=== PATIENT | male | born 1935 | race Caucasian/White ===

== ENCOUNTER → 2016-07-25 | Outpatient (CLI) | payer BC, OTHER ==
[~2016-07-25] MED LIST: ATOR-54 PO; CALCTAB5 PO; CHOL100010 PO; ECON0.05 TD; FLUD0.1T10 PO; FRS/40 PO; GABA-1218 PO; INSDGI SC; LACT12LO28 TOP; LOSA1TAB38 PO; METO50TA17 PO; MODA200T42 PO; NVLGI SC; POTA10TA33 PO; PRD/25 PO; PRED-301 PO; RMR15 PO; ROPI1TAB29 PO; WLLSR150 PO; XRL15 PO; [UNRECOGNIZED DRUG - CODE] TOP
[2016-07-25 17:45] LABS: HEMATOCRIT 38.8 % (42-52)
[2016-07-26 06:17] LABS: ESTIMATED AVERAGE GLUCOSE 186 mg/dl; HA1C FLAG Normal (Normal)
== END | disposition home or self-care (01) ==
LOC: C.LABBFT 15:46
PROVIDERS: ATTEND Nurse Practitioner Adult Health
DX: E11.649 Type 2 diabetes mellitus with hypoglycemia without coma (principal); E11.49 Type 2 diabetes mellitus with other diabetic neurological complication

== ENCOUNTER → 2016-10-14 | Outpatient (CLI) | payer BC | END | disposition home or self-care (01) | LOC: C.LABBFT 12:43 | PROVIDERS: ATTEND Psychiatry & Neurology Psychiatry | DX: F33.1 Major depressive disorder, recurrent, moderate (principal) ==

== ENCOUNTER → 2016-11-01 | Outpatient (CLI) | payer BC ==
[2016-11-02 06:55] LABS: ESTIMATED AVERAGE GLUCOSE 180 mg/dl; HA1C FLAG Normal (Normal)
== END | disposition home or self-care (01) ==
LOC: C.LAB1850 15:13
PROVIDERS: ATTEND Nurse Practitioner Adult Health
DX: E11.319 Type 2 diabetes mellitus with unspecified diabetic retinopathy without macular edema (principal)

== ENCOUNTER → 2017-02-11 | Outpatient (CLI) | payer BC ==
[~2017-02-11] MED LIST changes: -GABA-1218 PO; +GABA300C19 PO; +MODA1TAB6 PO; -MODA200T42 PO
[2017-02-11 17:04] LABS: ALT/SGPT 20 U/L (12-78); BLOOD UREA NITROGEN 23 mg/dl (7-18); BUN/CREATININE RATIO 17.3 (10-20); CALCIUM 9.8 mg/dl (8.5-10.1); CARBON DIOXIDE 26 mmol/L (21-32); CHLORIDE 107 mmol/L (98-107); CHOLESTEROL 134 mg/dl (0-200); GLUCOSE 186 mg/dl (70-99); POTASSIUM 3.7 mmol/L (3.5-5.1); SODIUM 141 mmol/L (136-145)
[2017-02-11 17:07] LABS: RATIO 25.2 mcg/mg (0-30.0)
[2017-02-11 17:15] LABS: ALB/GLOB RATIO 1.2 (0.9-2); ALKALINE PHOSPHATASE 94 U/L (45-117); AST/SGOT 26 U/L (15-37); CHOLESTEROL/HDL RATIO 1.7; HDL CHOLESTEROL 80 mg/dl; LDL CHOLESTEROL CALCULATED 39 mg/dl; TRIGLYCERIDES 73 mg/dl (0-150); VERY LOW DENSITY LIPOPROT CALC 15 mg/dl
== END | disposition home or self-care (01) ==
LOC: C.LAB1850 15:02
PROVIDERS: ATTEND Nurse Practitioner Adult Health
DX: I10 Essential (primary) hypertension (principal); E78.5 Hyperlipidemia, unspecified; E11.49 Type 2 diabetes mellitus with other diabetic neurological complication; E11.319 Type 2 diabetes mellitus with unspecified diabetic retinopathy without macular edema

== ENCOUNTER → 2017-03-27 | Outpatient (CLI) | payer BC ==
[~2017-03-27] MED LIST changes: +GABA-1218 PO; -GABA300C19 PO; -MODA1TAB6 PO; +MODA200T42 PO
[2017-03-27 18:23] LABS: BASO % 0.9 %; BASO ABS # 0.05 K/uL (0-0.2); COMPLETE YES; EOS % 3.3 %; HEMATOCRIT 39.5 % (42-52); IG% 0.3 %; LYMPH % 12.2 %; LYMPH ABS # 0.71 K/uL (1.2-3.4); MEAN CELL VOLUME 98.3 fL (80-100); MEAN CORPUSCULAR HEMOGLOBIN 32.8 pg (25-34); MEAN CORPUSCULAR HGB CONC 33.4 g/dl (32-36); MEAN PLATELET VOLUME 11.1 fL (7.4-10.4); MONO % 11.9 %; NEUT % 71.4 %; PLATELET COUNT 217 K/uL (130-400); RED BLOOD COUNT 4.02 M/uL (4.7-6.1); WHITE BLOOD COUNT 5.82 K/uL (4.8-10.8)
[2017-03-27 18:51] LABS: ALT/SGPT 24 U/L (12-78); AST/SGOT 32 U/L (15-37); BLOOD UREA NITROGEN 21 mg/dl (7-18); BUN/CREATININE RATIO 19.1 (10-20); CARBON DIOXIDE 31 mmol/L (21-32); CHLORIDE 102 mmol/L (98-107); CREATININE 1.09 mg/dl (0.60-1.40); GLUCOSE 143 mg/dl (70-99); POTASSIUM 3.7 mmol/L (3.5-5.1); SODIUM 141 mmol/L (136-145)
[2017-03-27 19:02] LABS: ALB/GLOB RATIO 1.2 (0.9-2); ALKALINE PHOSPHATASE 104 U/L (45-117)
== END | disposition home or self-care (01) ==
LOC: C.LABSPEC 17:34
PROVIDERS: ATTEND Internal Medicine
DX: R63.4 Abnormal weight loss (principal)

== ENCOUNTER → 2017-04-01 | Outpatient (CLI) | payer BC ==
--- NOTE | 2017-04-01 08:28 | DIAGNOSTIC IMAGING REPORT ---
(BARIUM SWALLOW) ESOPHAGUS CLINICAL HISTORY: DYSPHAGIA, weight loss COMPARISON STUDY: None FLUOROSCOPY TIME: 1.7 minutes. NUMBER OF FLUOROSCOPIC IMAGES: 22 FINDINGS: The patient swallowed effervescent granules and barium. There was penetration but no evidence of nikole aspiration. There is a mildly prominent cricopharyngeus impression. No esophageal masses or ulcerations are visualized. There were no strictures. There was reflux. A 1/2 inch barium tablet freely passed into the stomach. IMPRESSION: 1. Penetration but no evidence of aspiration 2. No esophageal masses or ulcerations identified 3. Reflux Electronically signed by: Andrew Singleton M.D. 04/01/2017 8:26 AM Dictated Date/Time: 04/01/2017 8:22 AM
--- NOTE | 2017-04-07 11:38 | CODING QUERY NO DIAGNOSIS ---
: 1935 TREATMENT RENDERED WITHOUT A DIAGNOSIS To promote full compliance with coding requirements relating to patient care, physician participation is requested in all cases of attraction attendant uncertainty. Please assist us with providing a diagnosis/symptom for the test(s) below: A diagnosis/symptom was not documented on your Order. A valid diagnosis/symptom is required to bill all insurances. Please remember that we are unable to code a diagnosis of rule out, probable, possible, questionable, or suspected. Tests that require a diagnosis: DOS: 04/01/17 *BARIUM SWALLOW DIAGNOSIS: Provider Signature: Date: Thank you Radha Taylor [facility] [employer] Once completed, please kindly fax back to [phone] For questions please call [phone]
== END | disposition home or self-care (01) ==
LOC: C.RAD 07:05
PROVIDERS: ATTEND Internal Medicine
DX: R13.14 Dysphagia, pharyngoesophageal phase (principal)

== ENCOUNTER → 2017-05-15 | Outpatient (CLI) | payer BC ==
[~2017-05-15] MED LIST changes: +ATOR-22 PO; +BUPR-79 PO; +CALC-393 PO; +CALCTAB7 PO; +CHOL1000 PO; +FLUR15CA12 PO; -INSDGI SC; +INSDGI SQ; +METO50TA16 PO; +NVLG SQ; +PRLSR20 PO; +RIVA1.5T PO
--- NOTE | 2017-05-19 12:37 | CODING QUERY MEDICAL NECESSITY ---
CQSUPPORTING DIAGNOSIS NEEDED A supporting diagnosis is required for the test/procedure performed on this patient in order for us to be reimbursed by the patient's insurance. Please provide a supporting diagnosis for the following test/procedure listed below next to the test name along with your signature. *If there is no additional diagnosis for this patient that would support the following test/procedure please document that below next to the test/procedure. Test(s)/Procedure(s) that require a supporting diagnosis: DOS 05/15/17 BONE MINERAL DENSITY STUDY Provider Signature: Date: Thank you Janiya Young Health Information Management Once completed, please kindly fax back to [phone] For questions please call [phone]
== END | disposition home or self-care (01) ==
LOC: C.MAMM 08:43
PROVIDERS: ATTEND Internal Medicine Endocrinology, Diabetes & Metabolism
DX: M85.80 Other specified disorders of bone density and structure, unspecified site (principal); E27.40 Unspecified adrenocortical insufficiency; Z79.52 Long term (current) use of systemic steroids

== ENCOUNTER → 2017-06-06 | Outpatient (CLI) | payer BC ==
[~2017-06-06] MED LIST changes: -ATOR-22 PO; -BUPR-79 PO; -CALC-393 PO; -CALCTAB7 PO; -CHOL1000 PO; -FLUR15CA12 PO; +INSDGI SC; -INSDGI SQ; -METO50TA16 PO; -NVLG SQ; -PRLSR20 PO; -RIVA1.5T PO
[2017-06-07 06:42] LABS: HEMOGLOBIN A1C 8.4 % (4.5-5.6)
== END | disposition home or self-care (01) ==
LOC: C.LABBFT 14:26
PROVIDERS: ATTEND Nurse Practitioner Adult Health
DX: E11.319 Type 2 diabetes mellitus with unspecified diabetic retinopathy without macular edema (principal)

== ENCOUNTER 2017-08-04 19:56 | Observation (INO) | payer BC ==
[~2017-08-04] VITALS: Ht 172.7 cm; Wt 66.7 kg
[~2017-08-04 19:56] MED LIST changes: -INSDGI SC; +INSDGI SQ
[2017-08-04] MEDS ORDERED: FENTANYL CITRATE INJ 50 MCG/1 ML 2 ML VIAL ONE (20:13)
[2017-08-04] MEDS ORDERED: ONDANSETRON INJ 2 MG/ML 2 ML VIAL ONE (20:13)
[2017-08-04] MEDS ORDERED: ASPIRIN 324 MG CHEW ONE (20:13)
--- NOTE | 2017-08-04 20:25 | EMERGENCY ROOM VISIT NOTE ---
History Report prepared by Dilshad: Howie Shepard Under the Supervision of: Dr. Lawrence Iraheta D.O. First contact with patient: 20:04 Stated Complaint: CARDIAC ASSESSMENT, History of Present Illness The patient is an 82 year old male who presents to the Emergency Room with complaints of a constant irregular heart rate beginning a few hours ago. The patient states he has a history of a-fib and says he is in it right now. He reports he was sitting at home when his symptoms began. The patient notes he experienced arm pain and intermittent shortness of breath. He states he is currently confused and is having a hard time recalling the history. The patient reports he has been nauseous and has had trouble eating and drinking as well. He denies chest pain, vomiting, and a headache. EMS states they were called for cardiac symptoms. They report the patient was given aspirin and fentanyl in route. EMS notes when they were administering the medication, he became confused. They state he was only oriented to the president. EMS reports the patient's blood sugar was 86. They note the patient' s reports his blood sugar was low this morning, so she gave him food. EMS states his blood sugar was elevated for a few measurements throughout the day. Source of History: patient Onset: a few hours ago Position: chest Quality: other (irregular heart rate) Timing: constant Associated Symptoms: + SOB (intermittent), + nausea, No headache, No chest pain, No vomiting Note: Associated symptoms: arm pain, confusion, trouble eating, trouble drinking Review of Systems See HPI for pertinent positives & negatives. A total of 10 systems reviewed and were otherwise negative. Past Medical & Surgical Medical Problems: (1) Atrial fibrillation (2) Chest pressure (3) Diabetes (4) Inguinal hernia (5) nausea, dehydration (6) S/P hernia repair Surgical Problems: (1) S/P ablation of atrial flutter (2) S/P cholecystectomy Family History Diabetes mellitus FH: cancer FH: heart disease FH: lung disease Kidney disease Kidney stones Social History Smoking Status: Former Smoker Alcohol Use: none Marital Status: Housing Status: lives with family Occupation Status: retired Current/Historical Medications Scheduled Atorvastatin (Lipitor), 20 MG PO QPM Bupropion (Wellbutrin Sr), 150 MG PO BID Calcium (Caltrate), 600 MG PO BID Cholecalciferol (Vitamin D), 2,000 INTER.UNIT PO DAILY@ NOON Fludrocortisone Acetate (Florinef), 0.1 MG PO QAM Furosemide (Lasix), 40 MG PO DAILY@ NOON Gabapentin (Neurontin), 300 MG PO TID Insulin Aspart (Novolog), 0 SC ACHS Insulin Glargine (Lantus), 16 UNITS SQ QAM Losartan Potassium (Cozaar), 100 MG PO DAILY Metoprolol Tartrate (Lopressor) (Lopressor), 50 MG PO BID Modafinil (Provigil), 200 MG PO DAILY Omeprazole (Prilosec), 20 MG PO QAM Potassium Chloride (Potassium Chloride Sr), 10 MEQ PO BID Prednisone (Prednisone), 5 MG PO QAM Prednisone (Prednisone), 2.5 MG PO W/LUNCH Rivaroxaban (Xarelto), 15 MG PO DAILY Ropinirole Hydrochloride (Requip), 1 MG PO TID Scheduled PRN Flurazepam Hcl (Flurazepam Hcl), 15 MG PO HS PRN for Insomnia Allergies Coded Allergies: Itraconazole (Verified Adverse Reaction, Intermediate, DEPRESSION, ) Lisinopril (Verified Adverse Reaction, Mild, COUGH, 04/25/16) Physical Exam Vital Signs Date Time Temp Pulse Resp B/P (MAP) Pulse Ox O2 Delivery O2 Flow Rate FiO2 08/04/17 22:32 77 14 130/90 99 Room Air 08/04/17 22:00 76 12 131/85 98 Room Air 08/04/17 21:30 64 10 136/86 98 Room Air 08/04/17 21:23 96 Room Air 08/04/17 21:22 96 Room Air 08/04/17 21:22 97 Room Air 08/04/17 21:20 65 12 126/80 97 Room Air 08/04/17 20:40 63 08/04/17 20:24 36.7 87 12 134/90 96 Room Air Physical Exam GENERAL: Patient is awake and answers questions slowly. Patient is resting comfortably and showing no signs of anxiety EYES: The conjunctivae are clear. The pupils are round and reactive. EARS, NOSE, MOUTH AND THROAT: The nose is without any evidence of any deformity. Mucous membranes are moist tongue is midline NECK: The neck is nontender and supple. RESPIRATORY: Rales at both bases. No tachypnea or conversational dyspnea. CARDIOVASCULAR: Regular rate and irregular rhythm noted there no definite murmurs noted. GASTROINTESTINAL: The abdomen is soft. Bowel sounds are present in all quadrants. Abdomen is nontender MUSCULOSKELETAL/EXTREMITIES: There is no evidence of gross deformity full range of motion is noted in the hips and shoulders SKIN: There is no obvious evidence of any rash. There are no petechiae, pallor or cyanosis noted. Trace pedal edema bilaterally. NEUROLOGIC: Patient is awake and oriented to person, place, and situation. Strength is diminished but equal in the lower extremities. Hose Inspector strength was diminished in the left compared to the right upper extremities. No facial droop appreciated. Medical Decision & Procedures ER Provider Diagnostic Interpretation: Radiology results as stated below per my review and radiologist interpretation: CT HEAD WITHOUT CONTRAST (CT) CLINICAL HISTORY: Altered mental status. Weakness. COMPARISON STUDY: February 16, 2015 TECHNIQUE: Axial CT of the brain is performed from the vertex to the skull base. IV contrast was not administered for this examination. A dose lowering technique was utilized adhering to the principles of ALARA. CT DOSE: 614.27 mGy.cm FINDINGS: No intra or extra-axial mass lesions are visualized. There is no CT evidence of acute cortical infarction. There is no evidence of midline shift. There is no acute hemorrhage. No calvarial fractures are visualized. There are mild white matter hypodensities likely on a small vessel basis. Subtle left frontal hypodensity is visualized #16/32 likely is artifactual. If symptoms are persistent, an MRI the brain could always be obtained in follow-up. There is no evidence of pathologic ventricular dilatation. There is no evidence of acute sinusitis IMPRESSION: No acute intracranial findings Electronically signed by: Andrew Singleton M.D. 08/04/2017 9:04 PM Dictated Date/Time: 08/04/2017 9:02 PM CHEST ONE VIEW PORTABLE CLINICAL HISTORY: Weakness, change in mental status COMPARISON STUDY: 05/01/2016 FINDINGS: The heart is borderline enlarged. There is aortic tortuosity. There is chronic left basilar atelectasis/scarring. There is no failure. There is no lobar consolidation.[ No significant pleural effusions are visualized. IMPRESSION: No change from the preceding study. No acute findings. Electronically signed by: Andrew Singleton M.D. 08/04/2017 9:22 PM Dictated Date/Time: 08/04/2017 9:21 PM Laboratory Results 08/04/17 20:31 Red Blood Count 4.25, Mean Corpuscular Volume 96.7, Mean Corpuscular Hemoglobin 32.7, Mean Corpuscular Hemoglobin Concent 33.8, Mean Platelet Volume 10.3, Neutrophils (%) (Auto) 66.0, Lymphocytes (%) (Auto) 17.7, Monocytes (%) (Auto) 11.1, Eosinophils (%) (Auto) 4.2, Basophils (%) (Auto) 0.7, Neutrophils # (Auto ) 4.89, Lymphocytes # (Auto) 1.31, Monocytes # (Auto) 0.82, Eosinophils # (Auto ) 0.31, Basophils # (Auto) 0.05 08/04/17 20:31 Test 08/04/17 20:18 08/04/17 20:31 Bedside Glucose 89 mg/dl (70-99) White Blood Count 7.40 K/uL (4.8-10.8) Red Blood Count 4.25 M/uL (4.7-6.1) Hemoglobin 13.9 g/dL (14.0-18.0) Hematocrit 41.1 % (42-52) Mean Corpuscular Volume 96.7 fL (80-100) Mean Corpuscular Hemoglobin 32.7 pg (25-34) Mean Corpuscular Hemoglobin Concent 33.8 g/dl (32-36) Platelet Count 232 K/uL (130-400) Mean Platelet Volume 10.3 fL (7.4-10.4) Neutrophils (%) (Auto) 66.0 % Lymphocytes (%) (Auto) 17.7 % Monocytes (%) (Auto) 11.1 % Eosinophils (%) (Auto) 4.2 % Basophils (%) (Auto) 0.7 % Neutrophils # (Auto) 4.89 K/uL (1.4-6.5) Lymphocytes # (Auto) 1.31 K/uL (1.2-3.4) Monocytes # (Auto) 0.82 K/uL (0.11-0.59) Eosinophils # (Auto) 0.31 K/uL (0-0.5) Basophils # (Auto) 0.05 K/uL (0-0.2) RDW Standard Deviation 49.9 fL (36.4-46.3) RDW Coefficient of Variation 14.1 % (11.5-14.5) Immature Granulocyte % (Auto) 0.3 % Immature Granulocyte # (Auto) 0.02 K/uL (0.00-0.02) Prothrombin Time 10.7 SECONDS (9.0-12.0) Prothromb Time International Ratio 1.0 (0.9-1.1) Activated Partial Thromboplast Time 25.0 SECONDS (21.0-31.0) Partial Thromboplastin Ratio 1.0 Anion Gap 5.0 mmol/L (3-11) Estimated GFR () 74.9 Estimated GFR (Non- 64.6 BUN/Creatinine Ratio 22.5 (10-20) Calcium Level 9.6 mg/dl (8.5-10.1) Magnesium Level 1.8 mg/dl (1.8-2.4) Total Bilirubin 0.6 mg/dl (0.2-1) Direct Bilirubin 0.2 mg/dl (0-0.2) Aspartate Amino Transf (AST/SGOT) 25 U/L (15-37) Alanine Aminotransferase (ALT/SGPT) 18 U/L (12-78) Alkaline Phosphatase 95 U/L (45-117) Total Creatine Kinase 86 U/L (39-308) Creatine Kinase MB 5.0 ng/ml (0.5-3.6) Creatine Kinase MB Ratio 5.8 (0-3.0) Troponin I 0.036 ng/ml (0-0.045) Pro-B-Type Natriuretic Peptide 2176 pg/ml (0-1800) Total Protein 6.0 gm/dl (6.4-8.2) Albumin 3.1 gm/dl (3.4-5.0) Thyroid Stimulating Hormone (TSH) 5.780 uIu/ml (0.300-4.500) Random Cortisol 11.06 mcg/dl Laboratory results per my review. ECG Per My Interpretation Indication: palpitations Rate (beats per minute): 78 Rhythm: atrial fibrillation Findings: no ectopy, other (No ST segment abnormality, no PVC) Comparison ECG Date: 04/25/16 Change: Decreased rate. Otherwise no significant change. ED Course 2010: The patient was evaluated in room C04. A complete history and physical examination were performed. 2148: Upon reevaluation, the patient is resting comfortably. I discussed results and treatment plan with him. He verbalizes agreement and understanding. The patient will be evaluated for further management and care. 2200: I spoke with Constantin, the resident, of the [facility] Hospitalist Service. The patient will be evaluated for further management and care. Medical Decision Differential diagnosis: Etiologies such as premature contractions, electrolyte abnormality, cardiac dysrhythmia, thyroid dysfunction, pulmonary embolism, infection, gastrointestinal, as well as others were entertained. Nursing notes reviewed. Additional history is obtained from the prehospital personnel. The patient is an 82-year-old male who presented to the emergency department for an evaluation of palpitations. The patient has a history of paroxysmal atrial fibrillation. He felt that he was having problems with palpitations and called the ambulance. He also has been complaining of some left upper extremity numbness and was unsure if this is related. The patient had diminished emergency department strength compared to the right hand but I am unsure if this is chronic. The patient was treated with pain medication prior to arrival. He was found to have rapid atrial fibrillation by the prehospital personnel but this appears to have improved prior to arrival. I discussed patient's laboratory and radiographic studies with him. He was treated with pain medication and aspirin prior to arrival. Given the patient's degree of symptoms I discussed his case with the on-call [facility] hospitalist group. They have agreed to evaluate the patient in the emergency department for further management and disposition. Medication Reconcilliation Current Medication List: was personally reviewed by me Blood Pressure Screening Patient's blood pressure: Normal blood pressure Blood pressure disposition: Did not require urgent referral Consults Time Called: 2147 Consulting Physician: Constantin, the , of the [facility] Hospitalist Service Returned Call: 2200 I spoke with Constantin, the resident, of the [facility] Hospitalist Service. The patient will be evaluated for further management and care. Impression Primary Impression: Chest pain Additional Impressions: Palpitations A-fib Weakness Scribe Attestation The scribe's documentation has been prepared under my direction and personally reviewed by me in its entirety. I confirm that the note above accurately reflects all work, treatment, procedures, and medical decision making performed by me. Departure Information Dispostion Being Evaluated By Hospitalist Referrals Luis Hansen M.D. (PCP) Problem Qualifiers Primary Impression: Chest pain Chest pain type: unspecified Qualified Codes: R07.9 - Chest pain, unspecified Additional Impressions: A-fib Atrial fibrillation type: paroxysmal Qualified Codes: I48.0 - Paroxysmal atrial fibrillation
[2017-08-04] MEDS ORDERED: PRLSR20 PO (20:57)
[2017-08-04] MEDS ORDERED: BUPR-79 PO (20:58)
[2017-08-04] MEDS ORDERED: METO50TA16 PO (21:03)
[2017-08-04 21:05] LABS: BASO % 0.7 %; BASO ABS # 0.05 K/uL (0-0.2); EOS % 4.2 %; EOS ABS # 0.31 K/uL (0-0.5); HEMATOCRIT 41.1 % (42-52); HEMOGLOBIN 13.9 g/dL (14.0-18.0); IG# 0.02 K/uL (0.00-0.02); LYMPH % 17.7 %; LYMPH ABS # 1.31 K/uL (1.2-3.4); MEAN CELL VOLUME 96.7 fL (80-100); MEAN CORPUSCULAR HEMOGLOBIN 32.7 pg (25-34); MEAN CORPUSCULAR HGB CONC 33.8 g/dl (32-36); MEAN PLATELET VOLUME 10.3 fL (7.4-10.4); MONO % 11.1 %; MONO ABS # 0.82 K/uL (0.11-0.59); NEUT ABS # 4.89 K/uL (1.4-6.5); PLATELET COUNT 232 K/uL (130-400); RED CELL DISTRIBUTION WIDTH CV 14.1 % (11.5-14.5); RED CELL DISTRIBUTION WIDTH SD 49.9 fL (36.4-46.3)
--- NOTE | 2017-08-04 21:06 | DIAGNOSTIC IMAGING REPORT ---
CT HEAD WITHOUT CONTRAST (CT) CLINICAL HISTORY: Altered mental status. Weakness. COMPARISON STUDY: February 16, 2015 TECHNIQUE: Axial CT of the brain is performed from the vertex to the skull base. IV contrast was not administered for this examination. A dose lowering technique was utilized adhering to the principles of ALARA. CT DOSE: 614.27 mGy.cm FINDINGS: No intra or extra-axial mass lesions are visualized. There is no CT evidence of acute cortical infarction. There is no evidence of midline shift. There is no acute hemorrhage. No calvarial fractures are visualized. There are mild white matter hypodensities likely on a small vessel basis. Subtle left frontal hypodensity is visualized #16/32 likely is artifactual. If symptoms are persistent, an MRI the brain could always be obtained in follow-up. There is no evidence of pathologic ventricular dilatation. There is no evidence of acute sinusitis IMPRESSION: No acute intracranial findings Electronically signed by: Andrew Singleton M.D. 08/04/2017 9:04 PM Dictated Date/Time: 08/04/2017 9:02 PM
[2017-08-04] MEDS ORDERED: RIVA1.5T PO (21:07)
[2017-08-04] MEDS ORDERED: CALC-393 PO (21:08)
[2017-08-04] MEDS ORDERED: CALCTAB7 PO (21:09)
[2017-08-04] MEDS ORDERED: ATOR-22 PO (21:15)
[2017-08-04 21:18] LABS: ALBUMIN 3.1 gm/dl (3.4-5.0); ALT/SGPT 18 U/L (12-78); BLOOD UREA NITROGEN 24 mg/dl (7-18); CALCIUM 9.6 mg/dl (8.5-10.1); CARBON DIOXIDE 30 mmol/L (21-32); CREATININE 1.06 mg/dl (0.60-1.40); GLUCOSE 98 mg/dl (70-99); POTASSIUM 3.2 mmol/L (3.5-5.1); SODIUM 141 mmol/L (136-145)
[2017-08-04] MEDS ORDERED: FLUR15CA12 PO (21:18)
[2017-08-04] MEDS ORDERED: INSDGI SQ (21:20)
--- NOTE | 2017-08-04 21:23 | DIAGNOSTIC IMAGING REPORT ---
CHEST ONE VIEW PORTABLE CLINICAL HISTORY: Weakness, change in mental status COMPARISON STUDY: 05/01/2016 FINDINGS: The heart is borderline enlarged. There is aortic tortuosity. There is chronic left basilar atelectasis/scarring. There is no failure. There is no lobar consolidation.[ No significant pleural effusions are visualized. IMPRESSION: No change from the preceding study. No acute findings. Electronically signed by: Andrew Singleton M.D. 08/04/2017 9:22 PM Dictated Date/Time: 08/04/2017 9:21 PM
[2017-08-04 21:30] LABS: ALKALINE PHOSPHATASE 95 U/L (45-117); AST/SGOT 25 U/L (15-37)
--- NOTE | 2017-08-04 22:16 | History and Physical ---
History & Physical Date & Time of Service: Aug 04, 2017 at 22:11 Chief Complaint: Cardiac Assessment, Primary Care Physician: Luis Hansen M.D. History of Present Illness Source: patient 82M with a PMHx of Afib, DM2, chronic adrenal insufficiency, TIA, HTN, h/o SVT s/p successful ablation, peripheral neuropathy, depression and indolent non Hodgkin's lymphoma diagnosed in 1999 p/w acute sudden chest pressure starting around noon this morning accompanied with left arm numbness/tingling and SOB. Pt states that his symptoms are constant and occur at rest. Patient reports that he believes his heart went into A. Fib and continually wishes that his heart would come out of A. Fib. Patient also reports feeling very thirsty - pt reports he hasn't had anything to drink for the entire day. Patient also reports that earlier in the day his blood sugar was in the 400s, he thinks this may have caused him to go into A. Fib. Pt is taking his medications as prescribed. He does not at present see a arch pad cementer. Pt got fentanyl 50mcg IV on route and Zofran. SHx: lives with in [place]. ROS: no diarrhea, no dysuria, no recent falls, chronic N&T on the upper extremities bilaterally. Past Medical/Surgical History Medical Problems: (1) ATRIAL FIB. RVR (2) Atrial fibrillation (3) Atrial fibrillation with RVR (4) Chest pain (5) Diabetes (6) Diabetes (7) Epigastric abdominal pain (8) Fecal impaction (9) Inguinal hernia (10) nausea, dehydration (11) post operative edema and ecchymosis (12) S/P hernia repair (13) Syncope (14) TIA (transient ischemic attack) (15) TIA, DM2 (16) Vomiting Surgical Problems: (1) S/P ablation of atrial flutter (2) S/P cholecystectomy Family History Diabetes mellitus FH: cancer FH: heart disease FH: lung disease Kidney disease Kidney stones Social History Smoking Status: Never Smoker Marital Status: Occupational Status: retired Allergies Coded Allergies: Itraconazole (Verified Adverse Reaction, Intermediate, DEPRESSION, ) Lisinopril (Verified Adverse Reaction, Mild, COUGH, 04/25/16) Home Medications Scheduled Atorvastatin (Lipitor), 20 MG PO QPM Bupropion (Wellbutrin Sr), 150 MG PO BID Calcium (Caltrate), 600 MG PO BID Cholecalciferol (Vitamin D), 2,000 INTER.UNIT PO DAILY@ NOON Fludrocortisone Acetate (Florinef), 0.1 MG PO QAM Furosemide (Lasix), 40 MG PO DAILY@ NOON Gabapentin (Neurontin), 300 MG PO TID Insulin Aspart (Novolog), 0 SC ACHS Insulin Glargine (Lantus), 16 UNITS SQ QAM Losartan Potassium (Cozaar), 100 MG PO DAILY Metoprolol Tartrate (Lopressor) (Lopressor), 50 MG PO BID Modafinil (Provigil), 200 MG PO DAILY Omeprazole (Prilosec), 20 MG PO QAM Potassium Chloride (Potassium Chloride Sr), 10 MEQ PO BID Prednisone (Prednisone), 5 MG PO QAM Prednisone (Prednisone), 2.5 MG PO W/LUNCH Rivaroxaban (Xarelto), 15 MG PO DAILY Ropinirole Hydrochloride (Requip), 1 MG PO TID Scheduled PRN Flurazepam Hcl (Flurazepam Hcl), 15 MG PO HS PRN for Insomnia Review of Systems Constitutional: + weakness, No fever, No chills, No weight loss Eyes: No worsening of vision ENT: No hearing loss Respiratory: + shortness of breath, + dyspnea at rest, No cough, No sputum, No wheezing Cardiovascular: No chest pain Abdomen: No pain, No nausea, No vomiting, No diarrhea, No constipation Musculoskeletal: No joint pain Genitourinary - Male: No hematuria, No dysuria Neurologic: No memory loss, No paralysis Physical Exam Vital Signs Date Time Temp Pulse Resp B/P (MAP) Pulse Ox O2 Delivery O2 Flow Rate FiO2 08/04/17 21:23 96 Room Air 08/04/17 21:22 96 Room Air 08/04/17 21:22 97 Room Air 08/04/17 21:20 65 12 126/80 97 Room Air 08/04/17 20:40 63 08/04/17 20:24 36.7 87 12 134/90 96 Room Air General Appearance: WD/WN, + thin Head: + pertinent finding (there is a circular scar the size of a nickel over the patients scalp - pt reports it doesn't heal well from his diabetes, denies the scar is from a fall) Eyes: normal inspection, PERRL, EOMI ENT: normal ENT inspection, hearing grossly normal Neck: supple, no adenopathy Respiratory/Chest: chest non-tender, lungs clear, normal breath sounds, no respiratory distress, no accessory muscle use Cardiovascular: no edema, no gallop, no murmur, normal peripheral pulses, + irregularly irregular Abdomen/GI: normal bowel sounds, non tender, soft, no organomegaly, no pulsatile mass Back: normal inspection, no CVA tenderness Extremities/Musculoskelatal: normal inspection, no calf tenderness, no pedal edema, normal range of motion Neurologic/Psych: research and development chemist II-XII nml as tested, no motor/sensory deficits, alert, oriented x 3, + pertinent finding (pt was slightly drowsy when examined, upon re -examination from my attending he was more alert, UE arm strenth appeared symmetrical, pt took a couple of tries to make a fist with his left hand - likely physiological and not pathological. ) Diagnostics Laboratory Results Results Past 24 Hours Test 08/04/17 20:18 08/04/17 20:31 Range/Units Bedside Glucose 89 70-99 mg/dl White Blood Count 7.40 4.8-10.8 K/uL Red Blood Count 4.25 4.7-6.1 M/uL Hemoglobin 13.9 14.0-18.0 g/dL Hematocrit 41.1 42-52 % Mean Corpuscular Volume 96.7 80-100 fL Mean Corpuscular Hemoglobin 32.7 25-34 pg Mean Corpuscular Hemoglobin Concent 33.8 32-36 g/dl Platelet Count 232 130-400 K/uL Mean Platelet Volume 10.3 7.4-10.4 fL Neutrophils (%) (Auto) 66.0 % Lymphocytes (%) (Auto) 17.7 % Monocytes (%) (Auto) 11.1 % Eosinophils (%) (Auto) 4.2 % Basophils (%) (Auto) 0.7 % Neutrophils # (Auto) 4.89 1.4-6.5 K/uL Lymphocytes # (Auto) 1.31 1.2-3.4 K/uL Monocytes # (Auto) 0.82 0.11-0.59 K/uL Eosinophils # (Auto) 0.31 0-0.5 K/uL Basophils # (Auto) 0.05 0-0.2 K/uL RDW Standard Deviation 49.9 36.4-46.3 fL RDW Coefficient of Variation 14.1 11.5-14.5 % Immature Granulocyte % (Auto) 0.3 % Immature Granulocyte # (Auto) 0.02 0.00-0.02 K/uL Prothrombin Time 10.7 9.0-12.0 SECONDS Prothromb Time International Ratio 1.0 0.9-1.1 Activated Partial Thromboplast Time 25.0 21.0-31.0 SECONDS Partial Thromboplastin Ratio 1.0 Sodium Level 141 136-145 mmol/L Potassium Level 3.2 3.5-5.1 mmol/L Chloride Level 105 98-107 mmol/L Carbon Dioxide Level 30 21-32 mmol/L Anion Gap 5.0 3-11 mmol/L Blood Urea Nitrogen 24 7-18 mg/dl Creatinine 1.06 0.60-1.40 mg/dl Estimated GFR () 74.9 Estimated GFR (Non- 64.6 BUN/Creatinine Ratio 22.5 10-20 Random Glucose 98 70-99 mg/dl Calcium Level 9.6 8.5-10.1 mg/dl Magnesium Level 1.8 1.8-2.4 mg/dl Total Bilirubin 0.6 0.2-1 mg/dl Direct Bilirubin 0.2 0-0.2 mg/dl Aspartate Amino Transf (AST/SGOT) 25 15-37 U/L Alanine Aminotransferase (ALT/SGPT) 18 12-78 U/L Alkaline Phosphatase 95 45-117 U/L Total Creatine Kinase 86 39-308 U/L Creatine Kinase MB 5.0 0.5-3.6 ng/ml Creatine Kinase MB Ratio 5.8 0-3.0 Troponin I 0.036 0-0.045 ng/ml Pro-B-Type Natriuretic Peptide 2176 0-1800 pg/ml Total Protein 6.0 6.4-8.2 gm/dl Albumin 3.1 3.4-5.0 gm/dl Thyroid Stimulating Hormone (TSH) 5.780 0.300-4.500 uIu/ml Random Cortisol 11.06 mcg/dl Diagnostic Radiology CHEST ONE VIEW PORTABLE CLINICAL HISTORY: Weakness, change in mental status COMPARISON STUDY: 05/01/2016 FINDINGS: The heart is borderline enlarged. There is aortic tortuosity. There is chronic left basilar atelectasis/scarring. There is no failure. There is no lobar consolidation.[ No significant pleural effusions are visualized. IMPRESSION: No change from the preceding study. No acute findings. [~ rep ct add3]] CT HEAD WITHOUT CONTRAST (CT) CLINICAL HISTORY: Altered mental status. Weakness. COMPARISON STUDY: February 16, 2015 TECHNIQUE: Axial CT of the brain is performed from the vertex to the skull base. IV contrast was not administered for this examination. A dose lowering technique was utilized adhering to the principles of ALARA. CT DOSE: 614.27 mGy.cm FINDINGS: No intra or extra-axial mass lesions are visualized. There is no CT evidence of acute cortical infarction. There is no evidence of midline shift. There is no acute hemorrhage. No calvarial fractures are visualized. There are mild white matter hypodensities likely on a small vessel basis. Subtle left frontal hypodensity is visualized #16/32 likely is artifactual. If symptoms are persistent, an MRI the brain could always be obtained in follow-up. There is no evidence of pathologic ventricular dilatation. There is no evidence of acute sinusitis IMPRESSION: No acute intracranial findings Impression Assessment and Plan 82M with a PMHx of Afib, DM2, chronic adrenal insufficiency, TIA, HTN, h/o SVT s/p successful ablation, peripheral neuropathy, depression and indolent non Hodgkin's lymphoma diagnosed in 1999 p/w acute sudden chest pressure starting around noon this morning accompanied with left arm numbness/tingling and SOB. Pt is also distressed that his heart went into Afib. EKG was not concerning for STEMI but pt had slight elevation of troponin. We will admit for chest pain rule out and get an echocardiogram. Of note is that the patient reports feeling dehydrated and has had some mood /depressive symptoms picked up in his last visit in May. (A patient of Dr. Yeyo Boyd who in May ordered a Psych consult). Elevated Troponins Pt was complaining of chest pressure and left arm tingling. No ST changes on EKG. Trop 0.036 in the ER, will check serially. Will admit to telemetry for observation. Afib Rate is around 78BPM irregularly irregular on the ER during the exam. Pt gets distressed every time his heart goes into A. Fib. Per chart review he has had an SVT with ablation. Unclear if present state is entirely from his HR. Will hydrate the patient was 125mls/hr (x 2 bags) Last echo was in 2014, showed EF of 2015 and some diastolic dysfunction. Will Repeat Echo. c/w Lopressor 50 MG PO BID c/w Xarelto 15 MG PO DAILY Pt is on Lasix 40mg daily, we will hold at present because patient appears dry. Watch for signs of fluid overload. Lethargy / Depression CT Head reviewed and normal. No obvious neurological deficits. Pt was lethargic on exam but that improved as Fentanyl wore off. Patient had a Psych consult in May - has poor social support at home. Will get a discharge planning eval for possible rehab placement. c/w Wellbutrin 150 MG PO BID. DM2 HBA1C was 8.4 in May. Pt reports getting glucose numbers in the 400s as recently as this AM. Pt is on Lantus and Novolog at home. Will repeat HBA1C. Glycemic control consult in place. Chronic Adrenal Insufficiency Pt reports taking his meds regularly. c/w Florinef 0.1 MG PO QAM c/w Provigil 200 MG PO DAILY c/w Prednisone 5 MG PO QAM + 2.5mg at lunch. HLD c/w Lipitor 20mg QAM Neuropathy c/w Neurontin 300mg TID HTN c/w Losartan 100mg daily. GERD c/w PPI daily. Restless Leg Syndrome c/w Requip 1 MG PO TID MSK Pt appears weak, will get PT and OT recs. Diet: DM2 and Heart Healthy DVT Proph: Xarelto as above. FULL CODE Resuscitation Status VTE Prophylaxis Will order VTE Prophylaxis: Yes Resident Involvement: Resident Care Provided Care Provided: Adult Hospital Medicine Reviewed: Pt Seen/Exam by Me History Patient seen and examined, chart reviewed, case discussed with Dr. Fabian and I agree with his assessment and plan as documented above. Briefly, patient is an 82yo C male with history of paroxysmal atrial fibrillation on group home anticoagulation with Xarelto, DM, HTN, TIA presenting with complaints of left sided chest pressure, shortness of breath and palpitations which began around noon today. Patient called EMS and was transported to [facility]. He was administered ASA, Fentanyl and Zofran en route. Patient presently complaining of left sided chest discomfort, shortness of breath, left hand numbness and overall feeling ill. Patient states that he feels that he is in atrial fibrillation and wishes to be cardioverted. Constitutional: denies: chills, fever Respiratory: positive: short of breath, negative: cough, orthopnea Cardiovascular: reports see HPI Gastrointestinal/Abdominal: negative: no symptoms reported Genitourinary: negative no symptoms reported Neurological/Psych: positive: see HPI Comments On exam patient is afebrile, HR 70s-80s irregularly irregular, BP 126/80, RR= 12, 96% on RA. He is AA&O to self, location and month, NAD. HEENT exam with dry mucus membranes, small skin tear on posterior occiput. CV-+S1/S2, irregularly irregular, no m/r/g. Lungs CTA, no rales/rhonchi/wheezes. Abdomen benign. Palpable pulses in 4 extremities, no edema or evidence of cardiac failure. Labs with CKMB=5, Trop=0.036, FNK=4499. H/H and BUN/Cr at or near baseline. CXR and CT head with no acute findings. EKG with no evidence of ischemia.
[2017-08-04] MEDS ORDERED: NITROGLYCERIN 0.4 MG SL PER TAB CHARGE SL PRN (23:00)
[2017-08-04] MEDS ORDERED: ONDANSETRON INJ 2 MG/ML 2 ML VIAL IV PRN (23:00)
[2017-08-04] MEDS ORDERED: FLURAZEPAM HCL 15 MG CAP PO PRN (23:00)
[2017-08-04] MEDS ORDERED: POLYETHYLENE (MIRALAX) 17 GM PACK PO PRN (23:00)
[2017-08-04] MEDS ORDERED: ALUMINUM/MAGNESIUM/SIMETH (MAALOX MAX) 30 ML UDC PO PRN (23:00)
[2017-08-04] MEDS ORDERED: MoRPHine SULFATE 2 MG/ML CARP IV PRN (23:00)
[2017-08-04] MEDS ORDERED: ZOLPIDEM TARTRATE 5 MG TAB PO PRN ×2 (23:00)
[2017-08-04] MEDS ORDERED: MAGNESIUM HYDROXIDE SUSP 30 ML UDC PO PRN (23:00)
[2017-08-04] MEDS ORDERED: ACETAMINOPHEN 325 MG TAB PO PRN (23:00)
[2017-08-04 23:45] VITALS: O2SAT 95
[2017-08-05 00:47] VITALS: BP 152/78; PULSE 85; TEMP 36.5; BMI 22.3
[2017-08-05] MEDS ORDERED: PHARMACY GLYCEMIC MGMT CONSULT PRN (01:22)
[2017-08-05] MEDS: NSS + 20MEQ KCL 1000ML 1,000 ML IV SCH ×2 (02:41→09:06)
[2017-08-05 04:00] VITALS: BP 152/82; PULSE 65; TEMP 36.6; O2SAT 97
[2017-08-05] MEDS ORDERED: IV FLUIDS COMPLETED PRN (05:00)
[2017-08-05] MEDS: INSULIN ASPART 100 UNITS/ML 3 ML PEN SC SCH ×3 (06:30→17:23)
[2017-08-05 07:39] VITALS: BP 118/64; PULSE 65; TEMP 36.7; O2SAT 97
[2017-08-05 08:08] LABS: BASO % 0.9 %; BASO ABS # 0.05 K/uL (0-0.2); EOS % 5.6 %; EOS ABS # 0.31 K/uL (0-0.5); HEMATOCRIT 37.7 % (42-52); HEMOGLOBIN 13.1 g/dL (14.0-18.0); IG# 0.01 K/uL (0.00-0.02); MEAN CELL VOLUME 96.4 fL (80-100); MEAN CORPUSCULAR HEMOGLOBIN 33.5 pg (25-34); MEAN CORPUSCULAR HGB CONC 34.7 g/dl (32-36); MEAN PLATELET VOLUME 9.9 fL (7.4-10.4); MONO % 14.2 %; MONO ABS # 0.78 K/uL (0.11-0.59); NEUT % 59.1 %; NEUT ABS # 3.24 K/uL (1.4-6.5); PLATELET COUNT 194 K/uL (130-400); RED CELL DISTRIBUTION WIDTH CV 14.3 % (11.5-14.5); RED CELL DISTRIBUTION WIDTH SD 50.5 fL (36.4-46.3); WHITE BLOOD COUNT 5.49 K/uL (4.8-10.8)
[2017-08-05] MEDS: ROPINIROLE HCL 1 MG TAB PO SCH ×2 (08:10→14:18)
[2017-08-05] MEDS: GABAPENTIN 300 MG CAP PO SCH ×2 (08:12→14:18)
[2017-08-05 08:27] LABS: CALCIUM 9.4 mg/dl (8.5-10.1); CREATININE 1.13 mg/dl (0.60-1.40); POTASSIUM 3.5 mmol/L (3.5-5.1)
--- NOTE | 2017-08-05 08:53 | Family Medicine Progress Note ---
Progress Note Date of Service Aug 05, 2017. Subjective Pt evaluation today including: conversation w/ patient Found patient immediately following his echo this morning, sitting up. Says that he has some 'discomfort' in his chest at baseline and when breathing, though does not particularly note any pleuritic pain on deep inspiration. Says that his symptoms have improved since onset around noon yesterday but not resolved. Says that it seems to come and go a bit since that time, not particularly associated with any activity. Denies any N/V, abdominal pain, present arm discomfort or numbness/tingling, or any other acute concerns. Constitutional: No fever, No chills Respiratory: + shortness of breath (perhaps), No cough Cardiovascular: + chest pain, No edema Abdomen: No pain, No nausea, No vomiting Medications Current Inpatient Medications Medications (Trade) Dose Ordered Sig/Jarad Route Start Time Stop Time Status Last Admin Dose Admin Potassium Chloride/Sodium Chloride 1,000 ml @ 125 mls/hr Q8H IV 08/05/17 01:30 08/05/17 17:29 08/05/17 02:41 125 MLS/HR Acetaminophen (Tylenol Tab) 650 mg Q4H PRN PO 08/04/17 23:00 09/03/17 22:59 Al Hydrox/Mg Hydrox/Simethicone (Maalox Max Susp) 15 ml Q4H PRN PO 08/04/17 23:00 09/03/17 22:59 Magnesium Hydroxide (Milk Of Magnesia Susp) 30 ml Q12H PRN PO 08/04/17 23:00 09/03/17 22:59 Ondansetron HCl (Zofran Inj) 4 mg Q6H PRN IV 08/04/17 23:00 09/03/17 22:59 Nitroglycerin (Nitrostat Tab) 0.4 mg UD PRN SL 08/04/17 23:00 09/03/17 22:59 Morphine Sulfate (MoRPHine SULFATE INJ) 2 mg Q30M PRN IV 08/04/17 23:00 08/18/17 22:59 Polyethylene (Miralax Powder Packet) 17 gm DAILY PRN PO 08/04/17 23:00 09/03/17 22:59 Atorvastatin Calcium (Lipitor Tab) 20 mg QPM PO 08/05/17 21:00 09/04/17 20:59 Bupropion HCl (Wellbutrin-Sr Tab) 150 mg BID PO 08/05/17 09:00 09/04/17 08:59 08/05/17 08:11 150 MG Fludrocortisone Acetate (Florinef Tab) 0.1 mg QAM PO 08/05/17 09:00 09/04/17 08:59 08/05/17 08:12 0.1 MG Flurazepam HCl (Dalmane Cap) 15 mg HS PRN PO 08/04/17 23:00 09/03/17 22:59 Gabapentin (Neurontin Cap) 300 mg TID PO 08/05/17 09:00 09/04/17 08:59 08/05/17 08:12 300 MG Losartan Potassium (coZAAR TAB) 100 mg DAILY PO 08/05/17 09:00 09/04/17 08:59 08/05/17 08:11 100 MG Metoprolol Tartrate (Lopressor Tab) 50 mg BID PO 08/05/17 09:00 09/04/17 08:59 08/05/17 08:12 50 MG Modafinil (proVIGIL TAB) 200 mg DAILY PO 08/05/17 09:00 09/04/17 08:59 Potassium Chloride (Klor-Con M10) 20 meq BID PO 08/05/17 09:00 09/04/17 08:59 08/05/17 08:10 20 MEQ Prednisone (PredniSONE TAB) 5 mg QAM PO 08/05/17 09:00 09/04/17 08:59 08/05/17 08:11 5 MG Rivaroxaban (Xarelto Tab) 15 mg QDD PO 08/05/17 17:00 09/04/17 16:59 Ropinirole HCl (Requip Tab) 1 mg TID PO 08/05/17 09:00 09/04/17 08:59 08/05/17 08:10 1 MG Pantoprazole Sodium (Protonix Tab) 40 mg QAM PO 08/05/17 09:00 09/04/17 08:59 08/05/17 08:13 40 MG Miscellaneous Information (Consult Glycemic Management Pharmacy) 1 ea UD PRN N/A 08/05/17 01:22 09/04/17 01:21 Prednisone (PredniSONE TAB) 2.5 mg DAILY@1200 PO 08/05/17 12:00 09/04/17 11:59 Insulin Aspart (novoLOG ASPART) SLIDING SCALE ACHS SC 08/05/17 06:30 09/04/17 06:29 Miscellaneous (Iv Fluids Completed) 1 ea PRN PRN N/A 08/05/17 05:00 08/05/18 04:59 Insulin Glargine (Lantus Solostar Pen) 15 units QAM SC 08/05/17 09:00 09/04/17 08:59 Objective Vital Signs Date Time Temp Pulse Resp B/P (MAP) Pulse Ox O2 Delivery O2 Flow Rate FiO2 08/05/17 07:39 36.7 65 18 118/64 (82) 97 Room Air 08/05/17 04:00 Room Air 08/05/17 04:00 36.6 65 20 152/82 (105) 97 Room Air 08/05/17 00:47 36.5 85 18 152/78 Room Air 08/04/17 23:45 74 18 123/72 95 08/04/17 22:32 77 14 130/90 99 Room Air 08/04/17 22:00 76 12 131/85 98 Room Air 08/04/17 21:30 64 10 136/86 98 Room Air 08/04/17 21:23 96 Room Air 08/04/17 21:22 96 Room Air 08/04/17 21:22 97 Room Air 08/04/17 21:20 65 12 126/80 97 Room Air 08/04/17 20:40 63 08/04/17 20:24 36.7 87 12 134/90 96 Room Air Physical Exam Notes: General Appearance: Awake, alert & oriented, speaking easily and comfortably in general, NAD. CV: +S1S2 RRR, no murmur. No peripheral edema. Pulm: Clear to auscultation throughout. Abdomen: +BS, soft, non-tender, non-distended. Extremities: No pedal edema or calf tenderness. Moving all extremities naturally and easily. Neuro: No gross neuro deficits. Lines: PIV. Laboratory Results 08/05/17 07:57 Red Blood Count 3.91, Mean Corpuscular Volume 96.4, Mean Corpuscular Hemoglobin 33.5, Mean Corpuscular Hemoglobin Concent 34.7, Mean Platelet Volume 9.9, Neutrophils (%) (Auto) 59.1, Lymphocytes (%) (Auto) 20.0, Monocytes (%) (Auto) 14.2, Eosinophils (%) (Auto) 5.6, Basophils (%) (Auto) 0.9, Neutrophils # (Auto ) 3.24, Lymphocytes # (Auto) 1.10, Monocytes # (Auto) 0.78, Eosinophils # (Auto ) 0.31, Basophils # (Auto) 0.05 08/05/17 07:57 Test 08/04/17 20:31 08/05/17 00:30 08/05/17 02:08 08/05/17 07:57 Prothrombin Time 10.7 SECONDS (9.0-12.0) Prothromb Time International Ratio 1.0 (0.9-1.1) Activated Partial Thromboplast Time 25.0 SECONDS (21.0-31.0) Partial Thromboplastin Ratio 1.0 Magnesium Level 1.8 mg/dl (1.8-2.4) Total Bilirubin 0.6 mg/dl (0.2-1) Direct Bilirubin 0.2 mg/dl (0-0.2) Aspartate Amino Transf (AST/SGOT) 25 U/L (15-37) Alanine Aminotransferase (ALT/SGPT) 18 U/L (12-78) Alkaline Phosphatase 95 U/L (45-117) Total Creatine Kinase 86 U/L (39-308) Creatine Kinase MB 5.0 ng/ml (0.5-3.6) Creatine Kinase MB Ratio 5.8 (0-3.0) Pro-B-Type Natriuretic Peptide 2176 pg/ml (0-1800) Total Protein 6.0 gm/dl (6.4-8.2) Albumin 3.1 gm/dl (3.4-5.0) Thyroid Stimulating Hormone (TSH) 5.780 uIu/ml (0.300-4.500) Random Cortisol 11.06 mcg/dl Urine Color DK YELLOW Urine Appearance CLOUDY (CLEAR) Urine pH 6.0 (4.5-7.5) Urine Specific [place] 1.022 (1.000-1.030) Urine Protein TRACE (NEG) Urine Glucose (UA) NEG (NEG) Urine Ketones TRACE (NEG) Urine Occult Blood NEG (NEG) Urine Nitrite NEG (NEG) Urine Bilirubin NEG (NEG) Urine Urobilinogen NEG (NEG) Urine Leukocyte Esterase TRACE (NEG) Urine WBC (Auto) 5-10 /hpf (0-5) Urine RBC (Auto) 0-4 /hpf (0-4) Urine Hyaline Casts (Auto) 5-10 /lpf (0-5) Urine Epithelial Cells (Auto) 20-30 /lpf (0-5) Urine Bacteria (Auto) NEG (NEG) Estimated Average Glucose 183 mg/dl Hemoglobin A1c 8.0 % (4.5-5.6) Free Thyroxine 1.40 ng/dl (0.80-1.60) White Blood Count 5.49 K/uL (4.8-10.8) Red Blood Count 3.91 M/uL (4.7-6.1) Hemoglobin 13.1 g/dL (14.0-18.0) Hematocrit 37.7 % (42-52) Mean Corpuscular Volume 96.4 fL (80-100) Mean Corpuscular Hemoglobin 33.5 pg (25-34) Mean Corpuscular Hemoglobin Concent 34.7 g/dl (32-36) Platelet Count 194 K/uL (130-400) Mean Platelet Volume 9.9 fL (7.4-10.4) Neutrophils (%) (Auto) 59.1 % Lymphocytes (%) (Auto) 20.0 % Monocytes (%) (Auto) 14.2 % Eosinophils (%) (Auto) 5.6 % Basophils (%) (Auto) 0.9 % Neutrophils # (Auto) 3.24 K/uL (1.4-6.5) Lymphocytes # (Auto) 1.10 K/uL (1.2-3.4) Monocytes # (Auto) 0.78 K/uL (0.11-0.59) Eosinophils # (Auto) 0.31 K/uL (0-0.5) Basophils # (Auto) 0.05 K/uL (0-0.2) RDW Standard Deviation 50.5 fL (36.4-46.3) RDW Coefficient of Variation 14.3 % (11.5-14.5) Immature Granulocyte % (Auto) 0.2 % Immature Granulocyte # (Auto) 0.01 K/uL (0.00-0.02) Anion Gap 6.0 mmol/L (3-11) Est Creatinine Clear Calc Drug Dose 46.7 ml/min Estimated GFR () 69.3 Estimated GFR (Non- 59.8 BUN/Creatinine Ratio 20.8 (10-20) Calcium Level 9.4 mg/dl (8.5-10.1) Troponin I 0.034 ng/ml (0-0.045) Test 08/05/17 08:10 Bedside Glucose 124 mg/dl (70-99) Assessment and Plan 82 yo male admitted for observation on [id number] for chest pressure, SOB, and palpitations. PMH: Afib, DM2, chronic adrenal insufficiency, TIA, HTN, h/o SVT s/p successful ablation, peripheral neuropathy, depression and indolent non Hodgkin' s lymphoma diagnosed in 1999 Chest pressure and SOB: Began around noon yesterday, waxing/waning, not particularly exertional. This am symptomatically improved but not resolved. No acute findings on pCXR. Good room SpO2 with no oxygen requirement. TnI x 3 have been negative. Initial EKG was afib without ST-T wave changes. No similar changes on telemetry monitoring overnight. This morning's echo (TTE) noted EF 55-60% that was overall reassuring. His chest symptoms do not appear to be related to an acute cardiopulmonary issue. There is some question of underlying psych issues, so perhaps some anxiety is playing a role. - Recommended close follow-up with his PCM and mental health (as referred by them). Paroxysmal Afib: History of same, including ablation for SVT. On arrival was in Afib rate 78. Overnight spontaneously converted to NSR with some PAC's. Kept on home lopressor 50 BID and xarelto 15 daily. Echo results as noted above. Dehydration: BUN/Cr ratio a bit elevated. Started on 0.9% NS + 20 KCl at 125 ml /hr. - Held home lasix 40. Will watch for s/s of fluid overload. Likely restart at time of hospital discharge. Lethargy: Per admit account, perhaps due to some fentanyl given early in treatment. CT head noted no acute findings. Did not appear lethargic on this morning's exam. Monitoring. Depression: Reportedly patient had psych consult ordered back in May by Dr. Yeyo Boyd. - On home wellbutrin 150 BID. - Discharge planning consult pending. May need help with social support vs rehab placement. DM2: Hx of same. HbA1c here 8.0. On lantus and novolog at home. Glycemic consult as inpatient. Monitoring. Chronic adrenal insufficiency: On home florinef 0.1 mg q AM, prednisone 5 mg q AM and 2.5 mg q lunch, and provigil 200 daily. Hyperlipidemia: Hx of same. On home lipitor 20. Neuropathy: Hx of same. On home neurontin 300 mg TID HTN: Hx of same. On home losartan 100 mg daily. GERD: Hx of same. On protonix 40 daily. Restless Leg Syndrome: Hx of same. On home requip 1 mg TID. Code status: Full code. Diet: DM2 and AHA heart healthy. DVT prophy: Xarelto as above. PT/OT: Pending. Disbo: Admit for observation to telemetry. Patient normally lives at home with . Resident Tracking Resident Involvement: Resident Care Provided Care Provided: Adult Hospital Medicine (inpatient)
[2017-08-05] MEDS ORDERED: MODAFINIL 100 MG TAB PO SCH (09:00)
[2017-08-05] MEDS ORDERED: BuPROPion SR 150 MG TABCR PO SCH (09:00)
[2017-08-05] MEDS ORDERED: POTASSIUM CHLORIDE 10 MEQ TABCR PO SCH (09:00)
[2017-08-05] MEDS ORDERED: INSULIN GLARGINE SOLOSTAR 100 UNITS/ML 3 ML PEN SC SCH (09:00)
[2017-08-05] MEDS ORDERED: METOPROLOL TARTRATE 50 MG TAB PO SCH (09:00)
[2017-08-05] MEDS ORDERED: LOSARTAN POTASSIUM 50 MG TAB PO SCH (09:00)
[2017-08-05] MEDS ORDERED: FUROSEMIDE 40 MG TAB PO SCH (09:00)
[2017-08-05] MEDS ORDERED: FLUDROCORTISONE ACETATE 0.1 MG TAB PO SCH (09:00)
[2017-08-05] MEDS ORDERED: PANTOprazole SOD 40 MG TAB PO SCH (09:00)
--- NOTE | 2017-08-05 10:45 | ECHOCARDIOGRAM REPORT ---
*NOTICE TO RECEIVING [employer] This information is strictly Confidential and protected under [place] law. [place] law prohibits you from making any further disclosure of this information unless further disclosure is expressly permitted by the written consent of the person to whom it pertains or is authorized by law. A general authorization for the release of medical or other information is not sufficient for this purpose. Hospital accepts no responsibility if the information is made available to any other person, INCLUDING THE PATIENT. Interpretation Summary * Conclusions -- * Normal LV chamber size with mild concentric LVH. * Normal LV systolic function, EF 55-60%. * No segmental left ventricular wall motion abnormalities are noted. * The mitral valve leaflets appear thickened, but open well. There is mild mitral regurgitation. There is no mitral valve stenosis. There is borderline mitral valve prolapse. Prolapse of the anterior mitral leaflet. * Mild left atrial enlargement. Procedure Details * A complete two-dimensional transthoracic echocardiogram was performed (2D, M-mode, Doppler and color flow Doppler). Left Ventricle * The left ventricle is normal in size. * There is mild concentric left ventricular hypertrophy. * Left ventricular systolic function is normal. * No segmental left ventricular wall motion abnormalities are noted. * Ejection Fraction = 55-60%. * The left ventricular wall motion is normal. Right Ventricle * The right ventricular cavity size is normal (basal dimension <4.2 cm in right ventricular apical 4-chamber view). * The right ventricular systolic function is normal as assessed by tricuspid annular plane systolic excursion (TAPSE) (normal >1.5 cm). Atria * The left atrium is mildly dilated. * Right atrial size is normal. * No ASD detected; PFO is not assessed. Mitral Valve * The mitral valve leaflets appear thickened, but open well. * There is borderline mitral valve prolapse. * Prolapse of the anterior mitral leaflet. * There is no mitral valve stenosis. * There is mild mitral regurgitation. Tricuspid Valve * The tricuspid valve is normal in structure and function. Aortic Valve * The aortic valve is normal in structure and function. Pulmonic Valve * The pulmonary valve is not well seen, but the Doppler examination is normal without significant regurgitation or stenosis. Great Vessels * The aortic root is normal size. Pericardium/Pleural * There is no pericardial effusion. MMode 2D Measurements and Calculations IVSd 1.3 cm IVSs 1.6 cm LVIDd 3.6 cm LVIDs 2.3 cm LVPWd 1.3 cm LVPWs 1.5 cm IVS/LVPW 1.0 FS 34.8 % EDV(Teich) 53.6 ml ESV(Teich) 18.7 ml EF(Teich) 65.0 % EDV(cubed) 45.8 ml ESV(cubed) 12.7 ml EF(cubed) 72.3 % % IVS thick 20.5 % % LVPW thick 17.7 % LV mass(C)d 163.6 grams LV mass(C)dI 94.3 grams/m\S\2 LV mass(C)s 127.7 grams LV mass(C)sI 73.6 grams/m\S\2 SV(Teich) 34.9 ml SI(Teich) 20.1 ml/m\S\2 SV(cubed) 33.1 ml SI(cubed) 19.1 ml/m\S\2 Ao root diam 3.7 cm Ao root area 10.6 cm\S\2 ACS 1.9 cm LA dimension 3.5 cm LA/Ao 0.94 LVOT diam 2.0 cm LVOT area 3.0 cm\S\2 LVAd ap4 32.5 cm\S\2 LVLd ap4 8.3 cm EDV(MOD-sp4) 102.2 ml EDV(sp4-el) 107.7 ml LVAs ap4 23.8 cm\S\2 LVLs ap4 7.8 cm ESV(MOD-sp4) 58.2 ml ESV(sp4-el) 61.7 ml EF(MOD-sp4) 43.0 % EF(sp4-el) 42.8 % LVAd ap2 26.7 cm\S\2 LVLd ap2 7.5 cm EDV(MOD-sp2) 78.9 ml EDV(sp2-el) 80.4 ml LVAs ap2 17.1 cm\S\2 LVLs ap2 6.5 cm ESV(MOD-sp2) 38.4 ml ESV(sp2-el) 38.0 ml EF(MOD-sp2) 51.3 % EF(sp2-el) 52.7 % LVLd %diff -10.63 % EDV(MOD-bp) 94.6 ml LVLs %diff -18.99 % ESV(MOD-bp) 50.9 ml EF(MOD-bp) 46.2 % SV(MOD-sp4) 43.9 ml SI(MOD-sp4) 25.3 ml/m\S\2 SV(MOD-sp2) 40.5 ml SI(MOD-sp2) 23.4 ml/m\S\2 SV(MOD-bp) 43.7 ml SI(MOD-bp) 25.2 ml/m\S\2 SV(sp4-el) 46.1 ml SI(sp4-el) 26.6 ml/m\S\2 SV(sp2-el) 42.4 ml SI(sp2-el) 24.4 ml/m\S\2 Doppler Measurements and Calculations MV E max raf 91.7 cm/sec MV A max raf 90.6 cm/sec MV E/A 1.0 MV P1/2t max raf 96.3 cm/sec MV P1/2t 108.2 msec MVA(P1/2t) 2.0 cm\S\2 MV dec slope 260.7 cm/sec\S\2 MV dec time 0.30 sec Ao V2 max 110.7 cm/sec Ao max PG 4.9 mmHg Ao max PG (full) 1.5 mmHg MENDOZA(V,A) 2.5 cm\S\2 MENDOZA(V,D) 2.5 cm\S\2 LV V1 max PG 3.4 mmHg LV V1 max 91.7 cm/sec PA V2 max 89.7 cm/sec PA max PG 3.2 mmHg PI max raf 151.8 cm/sec PI max PG 9.2 mmHg PI dec slope 69.1 cm/sec\S\2 PI P1/2t 643.3 msec TR max raf 290.9 cm/sec
[2017-08-05 11:32] VITALS: BP 126/62; PULSE 64; TEMP 36.7; O2SAT 93
[2017-08-05 12:46] VITALS: BMI 22.4
--- NOTE | 2017-08-05 14:20 | Pharmacy Progress Note ---
Glycemic Control Intl Consult Date of Service Aug 05, 2017. Scope Glycemic Pharmacist consulted by Dr Ambrocio on 08/04/17 for glycemic control and to write orders per [facility] inpatient glycemic control protocol Objective Weight (Kilograms): 66.700 Accuchecks BSG (last 24hrs): Test 08/04/17 20:18 08/04/17 20:31 08/05/17 00:56 08/05/17 07:57 Bedside Glucose 89 mg/dl (70-99) 106 mg/dl (70-99) Random Glucose 98 mg/dl (70-99) 138 mg/dl (70-99) Test 08/05/17 08:10 08/05/17 11:47 Bedside Glucose 124 mg/dl (70-99) 149 mg/dl (70-99) Laboratory Data (last 24hrs) Test 08/04/17 20:31 08/05/17 02:08 08/05/17 07:57 Anion Gap 5.0 mmol/L 6.0 mmol/L BUN/Creatinine Ratio 22.5 20.8 Blood Urea Nitrogen 24 mg/dl 24 mg/dl Creatinine 1.06 mg/dl 1.13 mg/dl Potassium Level 3.2 mmol/L 3.5 mmol/L Sodium Level 141 mmol/L 140 mmol/L White Blood Count 7.40 K/uL 5.49 K/uL Red Blood Count 4.25 M/uL 3.91 M/uL Hemoglobin 13.9 g/dL 13.1 g/dL Hematocrit 41.1 % 37.7 % Mean Corpuscular Volume 96.7 fL 96.4 fL Mean Corpuscular Hemoglobin 32.7 pg 33.5 pg Mean Corpuscular Hemoglobin Concent 33.8 g/dl 34.7 g/dl Platelet Count 232 K/uL 194 K/uL Mean Platelet Volume 10.3 fL 9.9 fL Neutrophils (%) (Auto) 66.0 % 59.1 % Lymphocytes (%) (Auto) 17.7 % 20.0 % Monocytes (%) (Auto) 11.1 % 14.2 % Eosinophils (%) (Auto) 4.2 % 5.6 % Basophils (%) (Auto) 0.7 % 0.9 % Neutrophils # (Auto) 4.89 K/uL 3.24 K/uL Lymphocytes # (Auto) 1.31 K/uL 1.10 K/uL Monocytes # (Auto) 0.82 K/uL 0.78 K/uL Eosinophils # (Auto) 0.31 K/uL 0.31 K/uL Basophils # (Auto) 0.05 K/uL 0.05 K/uL Hemoglobin A1c 8.0 % HbA1c Test 08/05/17 02:08 Hemoglobin A1c 8.0 % (4.5-5.6) H Recent Pertinent Medications Outpatient Anti-diabetic Regimen: * Lantus 16 units in the morning, Novolog 6 units with breakfast, 7 units with lunch, and 10 units with dinner (39 units/day) The patient is currently receiving: * Basal insulin: Lantus -- units every -- hours * Correctional Insulin: Novolog Correction per scale ACHS Goal Range: Low 120 mg/dL - High 160 mg/dL Correction Factor: 35 mg/dL/unit * Prandial insulin: Per carb ratio of 1 unit per 12 grams CHO consumed Risk Factors for Insulin Resistance: * Steroids: home dose of prednisone 5 mg with breakfast, 2.5 mg with lunch * Diet: type 2 diabetes diet Assessment & Plan ASSESSMENT: * Mr Farmer is an 82 y/o M with a PMH of Afib, TIA, HTN, non-Hodgkin's lymphoma who presents with elevated troponin and atrial fibrillation. He has a PMH of well controlled type 2 diabetes (per the Elements of Diabetes Care Scoring Scale the patient's goal HbA1C is 7.6-8.0%). Yesterday, per the patient , his blood sugars were in the 400s in the morning but by the evening the patient had a blood sugar of 106 mg/dL. Fasting this morning was 124 mg/dL. * Scheduled Lantus 15 units SQ qAM which is what the patient takes at home. Utilize weight-based stress of 2 Novolog as the patient's home regimen appears to be more weighted towards bolus insulin. Utilized higher goal range as uncertain how patient will respond. PLAN FOR INPATIENT GLYCEMIC CONTROL: * Basal insulin with LANTUS 15 units SQ qAM * Correctional Insulin with NOVOLOG per scale ACHS or Q6hrs while NPO * Goal Range: Low 120 mg/dL - High 160 mg/dL * Correction Factor: 35 mg/dL/unit * Nutritional / Prandial insulin per carb ratio of 1 unit per 12 grams CHO consumed OUTPATIENT RECOMMENDATIONS * Mr Farmer's HbA1C indicates the patient is relatively well controlled at home. Can continue home regimen as long as the patient does not have any hypoglycemia. Thank you.
[2017-08-05 15:20] VITALS: Ht 172.7 cm; Wt 66.7 kg
[2017-08-05 15:58] VITALS: BP 143/70; PULSE 63; TEMP 36.6; O2SAT 96
--- NOTE | 2017-08-05 16:13 | Discharge Instructions ---
Discharge Instructions Date of Service Aug 05, 2017. Admission Reason for Admission: Chest Pressure Discharge Discharge Diagnosis / Problem: Chest pressure Discharge Goals Goal(s): Improve function, Learn about illness Activity Recommendations Activity Limitations: per Instructions/Follow-up section . Instructions / Follow-Up Instructions / Follow-Up You were brought into the hospital for further evaluation of your chest pressure and mild difficulty breathing, both of which seem to have improved since your arrival. Multiple tests to evaluate your heart and lungs did not suggest an acute heart or lung problem causing your symptoms. The exact cause of your symptoms is unknown, though it may be partially related to your stress concerning going into afib. You were briefly in afib on arrival to the hospital , but that spontaneously stopped overnight. - It remains very important that you have close follow-up this week with your primary care provider so you can get further evaluation of your chest symptoms. - Please talk with your primary care provider about your diabetes control as well. - Return to the nearest emergency department if you feel that your chest symptoms or breathing gets worse in any way, for any feeling of a racing heart, any new abdominal pain, sudden sweating, sudden throwing up or abdominal pain, or for any other immediate medical concerns that worry you. Current Hospital Diet Patient's current hospital diet: Diabetes Type 2 Diet, AHA Diet (Heart Healthy) Discharge Diet Recommended Diet: AHA Diet (Heart Healthy), Diabetes Type 2 Diet Procedures Procedures Performed: CT head, Chest x-ray, Echocardiogram Pending Studies Studies pending at discharge: no Laboratory Results Hemoglobin A1c Test 08/05/17 02:08 Range/Units Estimated Average Glucose 183 mg/dl Hemoglobin A1c 8.0 H 4.5-5.6 % Medical Emergencies . Who to Call and When: Medical Emergencies: If at any time you feel your situation is an emergency, please call 911 immediately. . Non-Emergent Contact Non-Emergency issues call your: Primary Care Provider .
--- NOTE | 2017-08-05 16:17 | Discharge Summary ---
Discharge Summary Date of Service Aug 05, 2017. Discharge Summary Admission Date: Aug 04, 2017 at 22:54 Discharge Date: Aug 05, 2017 Discharge Disposition: Home Principal Diagnosis: Chest pressure Problems/Secondary Diagnoses: - Paroxysmal atrial fibrillation - Diabetes mellitus type 2 Procedures: 04Aug2017 - CT HEAD WITHOUT CONTRAST (CT) FINDINGS: No intra or extra-axial mass lesions are visualized. There is no CT evidence of acute cortical infarction. There is no evidence of midline shift. There is no acute hemorrhage. No calvarial fractures are visualized. There are mild white matter hypodensities likely on a small vessel basis. Subtle left frontal hypodensity is visualized #16/32 likely is artifactual. If symptoms are persistent, an MRI the brain could always be obtained in follow-up. There is no evidence of pathologic ventricular dilatation. There is no evidence of acute sinusitis IMPRESSION: No acute intracranial findings 04Aug2017 - CHEST ONE VIEW PORTABLE CLINICAL HISTORY: Weakness, change in mental status COMPARISON STUDY: 05/01/2016 FINDINGS: The heart is borderline enlarged. There is aortic tortuosity. There is chronic left basilar atelectasis/scarring. There is no failure. There is no lobar consolidation. No significant pleural effusions are visualized. IMPRESSION: No change from the preceding study. No acute findings. 05Aug2017 - Complete two-dimensional transthoracic echocardiogram was performed (2D, M-mode, Doppler and color flow Doppler). Interpretation Summary * Conclusions -- * Normal LV chamber size with mild concentric LVH. * Normal LV systolic function, EF 55-60%. * No segmental left ventricular wall motion abnormalities are noted. * The mitral valve leaflets appear thickened, but open well. There is mild mitral regurgitation. There is no mitral valve stenosis. There is borderline mitral valve prolapse. Prolapse of the anterior mitral leaflet. * Mild left atrial enlargement. Consultations: None. Medication Reconciliation Continued Medications: Atorvastatin (Lipitor) 20 Mg Tab 20 MG PO QPM, TAB Bupropion (Wellbutrin Sr) 150 Mg Ertab 150 MG PO BID, TAB Calcium (Caltrate) 600 Mg Tab 600 MG PO BID, TAB Cholecalciferol (Vitamin D) 1,000 Inter.unit Tab 2000 INTER.UNIT PO DAILY@ NOON SPRING/SUMMER DOSE = 1000U. ANTONETTE/WINTER DOSE = 2000U* Fludrocortisone Acetate (Florinef) 0.1 Mg Tab 0.1 MG PO QAM Flurazepam Hcl (Flurazepam Hcl) 15 Mg Cap 15 MG PO HS PRN for Insomnia Furosemide (Lasix) 40 Mg Tab 40 MG PO DAILY@ NOON Gabapentin (Neurontin) 300 Mg Cap 300 MG PO TID, CAP Insulin Aspart (Novolog) 100 Unit/ Inj 0 SC ACHS, BTL SLIDING SCALE 6 UNITS BREAKFAST 7 UNITS LUNCH 10 UNITS EVENING MEAL Insulin Glargine (Lantus) 100 Unit/Ml Inj 16 UNITS SQ QAM, VIAL 0500 Losartan Potassium (Cozaar) 100 Mg Tab 100 MG PO DAILY, TAB Metoprolol Tartrate (Lopressor) (Lopressor) 50 Mg Tab 50 MG PO BID, TAB Modafinil (Provigil) 200 Mg Tab 200 MG PO DAILY, TAB Omeprazole (Prilosec) 20 Mg Capcr 20 MG PO QAM, CAP Potassium Chloride (Potassium Chloride Sr) 10 Meq Tab 10 MEQ PO BID Prednisone (Prednisone) 5 Mg Tab 5 MG PO QAM, TAB Prednisone (Prednisone) 2.5 Mg Tab 2.5 MG PO W/LUNCH, TAB Rivaroxaban (Xarelto) 15 Mg Tab 15 MG PO DAILY, TAB Ropinirole Hydrochloride (Requip) 1 Mg Tab 1 MG PO TID, TAB Discharge Exam General Appearance: Awake, alert & oriented, speaking easily and comfortably in general, NAD. CV: +S1S2 RRR, no murmur. No peripheral edema. Pulm: Clear to auscultation throughout. Abdomen: +BS, soft, non-tender, non-distended. Extremities: No pedal edema or calf tenderness. Moving all extremities naturally and easily. Neuro: No gross neuro deficits. Lines: PIV. Review of Systems: Constitutional: No fever, No chills Respiratory: + shortness of breath (improved), No cough Cardiovascular: + chest pain (improved), No edema Abdomen: No pain, No nausea, No vomiting, No diarrhea Musculoskeletal: No swelling, No calf pain Hospital Course HPI at time of admission on Aug 04, 2017 at 22:11 82M with a PMHx of Afib, DM2, chronic adrenal insufficiency, TIA, HTN, h/o SVT s/p successful ablation, peripheral neuropathy, depression and indolent non Hodgkin's lymphoma diagnosed in 1999 p/w acute sudden chest pressure starting around noon this morning accompanied with left arm numbness/tingling and SOB. Pt states that his symptoms are constant and occur at rest. Patient reports that he believes his heart went into A. Fib and continually wishes that his heart would come out of A. Fib. Patient also reports feeling very thirsty - pt reports he hasn't had anything to drink for the entire day. Patient also reports that earlier in the day his blood sugar was in the 400s, he thinks this may have caused him to go into A. Fib. 82 yo male admitted for observation on 04Aug2017 for chest pressure, SOB, and palpitations. PMH: Afib, DM2, chronic adrenal insufficiency, TIA, HTN, h/o SVT s/p successful ablation, peripheral neuropathy, depression and indolent non Hodgkin' s lymphoma diagnosed in 1999 Chest pressure and SOB: Began around noon yesterday, waxing/waning, not particularly exertional. This am symptomatically improved but not resolved. No acute findings on pCXR. Good room SpO2 with no oxygen requirement. TnI x 3 have been negative. Initial EKG was afib without ST-T wave changes. No similar changes on telemetry monitoring overnight. This morning's echo (TTE) noted EF 55-60% that was overall reassuring. His chest symptoms do not appear to be related to an acute cardiopulmonary issue. There is some question of underlying psych issues, so perhaps some anxiety is playing a role. - Recommended close follow-up with his PCM and mental health (as referred by them). Paroxysmal Afib: History of same, including ablation for SVT. On arrival was in Afib rate 78. Overnight spontaneously converted to NSR with some PAC's. Kept on home lopressor 50 BID and xarelto 15 daily. Echo results as noted above. Dehydration: BUN/Cr ratio a bit elevated. Started on 0.9% NS + 20 KCl at 125 ml /hr in hospital for repletion. Held home lasix here, but restarted at time of hospital discharge. Lethargy: Noted per admit account, perhaps due to some fentanyl given early in treatment. CT head noted no acute findings, though see their full report for specific findings. Did not appear lethargic on exam on day of discharge. Depression: Reportedly patient had psych consult ordered back in May by Dr. Amarilis Alejandro (PCM). Kept on home Wellbutrin 150 BID. No acute changes as inpatient. DM2: Hx of same. HbA1c here 8.0. No acute changes as inpatient. Chronic adrenal insufficiency: Hx of same. On home florinef 0.1 mg q AM, prednisone 5 mg q AM and 2.5 mg q lunch, and provigil 200 daily. No acute changes as inpatient. Hyperlipidemia: Hx of same. On home lipitor 20. No acute changes as inpatient. Neuropathy: Hx of same. On home neurontin 300 mg TID. No acute changes as inpatient. HTN: Hx of same. On home losartan 100 mg daily. No acute changes as inpatient. GERD: Hx of same. On protonix 40 daily as inpatient. Otherwise no acute changes. Restless Leg Syndrome: Hx of same. On home requip 1 mg TID. No acute changes as inpatient. Total Time Spent: Greater than 30 minutes This includes examination of the patient, discharge planning, medication reconciliation, and communication with other providers. Discharge Instructions Please refer to the electronic Patient Visit Report (Discharge Instructions) for additional information. Additional Copies To Luis Hansen M.D. Resident Tracking Resident Involvement: Resident Care Provided Care Provided: Adult Hospital Medicine (inpatient) Assessment/Plan Resident Physician Supervision Note: I was present with Dr. Renteria during the history and exam. I discussed the case with the resident and agree with the findings and plan as documented in the note. Any exceptions or clarifications are listed here. Pt resting comfortably in bed reporting resolution of presenting symptoms. S1/ S2 nl RRR no MCG w/o reproducible pain on palpation. CTAB. NT/ND, BS+ve. Pt reports symptoms may have begun epigastrically following taking his medications in the AM. At present, no apparent cardiorespiratory cause of discomfort, so agree w/ discharge to outpatient follow up.
[2017-08-05 16:47] VITALS: BP 143/70; PULSE 63; TEMP 36.6; O2SAT 96
[2017-08-05] MEDS ORDERED: RIVAROXABAN TAB 15 MG TAB PO SCH (17:00)
[2017-08-05] MEDS ORDERED: ATORVASTATIN 20 MG TAB PO SCH (21:00)
== END 2017-08-05 19:05 | disposition home or self-care (01) ==
LOC: EDBD 19:56 → C.EDC 20:03 → C.MED 22:54 → ENRESERV 23:15
PROVIDERS: ADMIT Internal Medicine; ATTEND Family Medicine
DX: R07.9 Chest pain, unspecified (principal); I48.0 Paroxysmal atrial fibrillation; R00.2 Palpitations; R53.83 Other fatigue; C85.90 Non-Hodgkin lymphoma, unspecified, unspecified site; F32.9 Major depressive disorder, single episode, unspecified; R53.1 Weakness; E27.40 Unspecified adrenocortical insufficiency; E78.5 Hyperlipidemia, unspecified; G25.81 Restless legs syndrome; K21.9 Gastro-esophageal reflux disease without esophagitis; I10 Essential (primary) hypertension; E11.40 Type 2 diabetes mellitus with diabetic neuropathy, unspecified; Z88.8 Allergy status to other drugs, medicaments and biological substances; Z79.52 Long term (current) use of systemic steroids; Z79.4 Long term (current) use of insulin; Z79.899 Other long term (current) drug therapy; Z87.891 Personal history of nicotine dependence; Z86.73 Personal history of transient ischemic attack (TIA), and cerebral infarction without residual deficits

== ENCOUNTER → 2017-12-03 | Outpatient (CLI) | payer BC ==
[~2017-12-03] MED LIST changes: +ATOR-22 PO; -ATOR-54 PO; +BUPR-79 PO; +CALC-393 PO; -CALCTAB5 PO; +CHOL1000 PO; -CHOL100010 PO; -ECON0.05 TD; -LACT12LO28 TOP; +METO50TA16 PO; -METO50TA17 PO; +NVLG SQ; -NVLGI SC; +RIVA1.5T PO; -RMR15 PO; -WLLSR150 PO; -XRL15 PO; -[UNRECOGNIZED DRUG - CODE] TOP
[2017-12-03 18:17] LABS: BASO % 0.3 %; BASO ABS # 0.02 K/uL (0-0.2); EOS % 0.7 %; EOS ABS # 0.05 K/uL (0-0.5); HEMATOCRIT 35.8 % (42-52); HEMOGLOBIN 11.9 g/dL (14.0-18.0); IG# 0.02 K/uL (0.00-0.02); LYMPH % 7.1 %; MEAN CELL VOLUME 97.8 fL (80-100); MEAN CORPUSCULAR HEMOGLOBIN 32.5 pg (25-34); MEAN CORPUSCULAR HGB CONC 33.2 g/dl (32-36); MEAN PLATELET VOLUME 11.3 fL (7.4-10.4); MONO % 7.4 %; MONO ABS # 0.52 K/uL (0.11-0.59); NEUT % 84.2 %; NEUT ABS # 5.91 K/uL (1.4-6.5); PLATELET COUNT 211 K/uL (130-400); RED CELL DISTRIBUTION WIDTH CV 14.4 % (11.5-14.5); RED CELL DISTRIBUTION WIDTH SD 50.9 fL (36.4-46.3); WHITE BLOOD COUNT 7.02 K/uL (4.8-10.8)
[2017-12-03 18:54] LABS: ALBUMIN 3.4 gm/dl (3.4-5.0); ALKALINE PHOSPHATASE 77 U/L (45-117); ALT/SGPT 27 U/L (12-78); AST/SGOT 30 U/L (15-37); BLOOD UREA NITROGEN 33 mg/dl (7-18); CALCIUM 10.6 mg/dl (8.5-10.1); CARBON DIOXIDE 29 mmol/L (21-32); CREATININE 1.56 mg/dl (0.60-1.40); GLUCOSE 164 mg/dl (70-99); POTASSIUM 3.9 mmol/L (3.5-5.1); SODIUM 139 mmol/L (136-145); TOTAL PROTEIN 6.3 gm/dl (6.4-8.2)
== END | disposition home or self-care (01) ==
LOC: C.LABSPEC 17:07
PROVIDERS: ATTEND Internal Medicine
DX: R63.4 Abnormal weight loss (principal); R53.83 Other fatigue; I48.91 Unspecified atrial fibrillation; R41.3 Other amnesia; R42 Dizziness and giddiness